=== PATIENT | male | born 1985 | race Caucasian/White ===

== ENCOUNTER 2017-07-03 02:04 | Emergency (ER) | payer BC, OTHER ==
[~2017-07-03] VITALS: Ht 177.8 cm; Wt 106.6 kg
[2017-07-03 02:05] VITALS: BP 143/92
[2017-07-03 05:19] LABS: Hepatitis B Surface Antibody Positive
[2017-07-03 05:36] LABS: Hepatitis B Surface Antigen Negative (Negative)
== END 2017-07-03 05:09 | disposition home or self-care (01) ==
LOC: ER 02:14
DX: S61.204A Unspecified open wound of right ring finger without damage to nail, initial encounter (principal); W27.3XXA Contact with needle (sewing), initial encounter; Y93.89 Activity, other specified; Y99.8 Other external cause status; Y92.89 Other specified places as the place of occurrence of the external cause
CPT/HCPCS: 36415; 86703; 86706; 86803; 87340

== ENCOUNTER 2018-06-23 20:32 | Emergency (ER) | payer OTHER ==
[~2018-06-23] VITALS: Ht 175.3 cm; Wt 111.1 kg
[2018-06-23 21:19] VITALS: BP 124/82
[2018-06-23 23:07] LABS: Hepatitis B Surface Antibody Positive
== END 2018-06-24 00:15 | disposition home or self-care (01) ==
LOC: EEVIPCON 20:32 → ER 20:32
DX: S61.230A Puncture wound without foreign body of right index finger without damage to nail, initial encounter (principal); W46.0XXA Contact with hypodermic needle, initial encounter; Y93.89 Activity, other specified; Y92.89 Other specified places as the place of occurrence of the external cause; Y99.8 Other external cause status
CPT/HCPCS: 36415; 86703; 86706; 86803; 87340